=== PATIENT | male | born 1950 | race Caucasian/White ===

== ENCOUNTER 2018-02-10 00:38 | Emergency (ER) | payer BC | END 2018-02-10 00:43 | disposition E | LOC: MADERS 00:38 | DX: I46.9 Cardiac arrest, cause unspecified (principal); S81.801A Unspecified open wound, right lower leg, initial encounter; V43.62XA Car passenger injured in collision with other type car in traffic accident, initial encounter | CPT/HCPCS: 92950; 96374 ==